=== PATIENT | female | born 1965 | race Caucasian/White ===

== ENCOUNTER 2017-07-16 19:13 | Emergency (ER) | payer BC ==
[2017-07-16] MEDS ORDERED: Sodium Chloride 0.9% 1000 ML 1,000 ML IV STA (19:43)
[2017-07-16] MEDS ORDERED: TORAdol 30 mg Injection IV ONE (19:43)
[2017-07-16] MEDS ORDERED: TORAdol 30 mg Injection ONE (19:48)
[2017-07-16] MEDS ORDERED: Sodium Chloride 0.9% 1000 ML 1,000 ML ONE (19:48)
--- NOTE | 2017-07-16 19:48 | ERPHSYRPT ---
- History of Present Illness Time Seen by Provider: 07/16/17 19:36 Source: patient Exam Limitations: no limitations Patient Subjective Stated Complaint: pt states she had lt flank pain for approx 2 weeks. radiates to lt groin. worse with movement or deep breath. Triage Nursing Assessment: pt alet and oriented, answers qeustions approp. respirations nonlabored with lungs cta. pt ambulatory with slightly limping gait noted. tenderness noted to lt lower back. Physician History: 52 y/o female comes to the ER with complaints of right flank pain for the past 2 weeks. Pt describes the pain as sharp, constant, 8/10, with radiation to right groin and not relieved by steroids. Pt denies any fever, chills, nausea, vomiting or urinary symptoms. No know injury. Timing/Duration: week(s) Activites at Onset: none Quality: sharpness Onset Location: right flank, groin Pain Radiation: groin Severity of Pain-Max: severe Severity of Pain-Current: severe Prior abdominal problems: none Modifying Factors: Improves With: nothing Allergies/Adverse Reactions: No Known Drug Allergies Allergy (Verified 07/16/17 19:32) Hx Tetanus, Diphtheria Vaccination/Date Given: Yes (up to date) Hx Influenza Vaccination/Date Given: No Hx Pneumococcal Vaccination/Date Given: No - Review of Systems Constitutional: No Fever, No Chills Eyes: No Symptoms Ears, Nose, & Throat: No Symptoms Respiratory: No Cough, No Dyspnea Cardiac: No Chest Pain, No Edema, No Syncope Abdominal/Gastrointestinal: Abdominal Pain, No Nausea, No Vomiting, No Diarrhea Genitourinary Symptoms: Flank Pain, No Dysuria Musculoskeletal: No Back Pain, No Neck Pain Skin: No Rash Neurological: No Dizziness, No Focal Weakness, No Sensory Changes Psychological: No Symptoms Endocrine: No Symptoms All Other Systems: Reviewed and Negative - Past Medical History Pertinent Past Medical History: No Neurological History: No Pertinent History ENT History: No Pertinent History Cardiac History: No Pertinent History Respiratory History: No Pertinent History Endocrine Medical History: No Pertinent History Musculoskeletal History: No Pertinent History GI Medical History: No Pertinent History History: No Pertinent History Psycho-Social History: No Pertinent History Female Reproductive Disorders: Other Other Medical History: tubal - Past Surgical History Past Surgical History: Yes Neuro Surgical History: No Pertinent History Cardiac: No Pertinent History Respiratory: No Pertinent History Gastrointestinal: No Pertinent History Genitourinary: No Pertinent History Musculoskeletal: Orthopedic Surgery Female Surgical History: Other Other Surgical History: removal of fallopian tube. left arm surgery (tendon repair) - Social History Smoking Status: Current every day smoker How long have you smoked: 35 Exposure to second hand smoke: Yes Drug Use: none Patient Lives Alone: No - Female History Hx Now: No (patient with 1 tube blocked and salpingectomy other side) - Nursing Vital Signs Nursing Vital Signs: Initial Vital Signs Temperature 97.6 F 07/16/17 19:19 Pulse Rate 103 H 07/16/17 19:19 Respiratory Rate 18 07/16/17 19:19 Blood Pressure 138/87 07/16/17 19:19 O2 Sat by Pulse Oximetry 95 07/16/17 19:19 Pain Scale Pain Intensity 3 - Physical Exam General Appearance: no apparent distress, alert Eye Exam: PERRL/EOMI, eyes nml inspection Ears, Nose, Throat Exam: normal ENT inspection, TMs normal, pharynx normal, moist mucous membranes Neck Exam: normal inspection, non-tender, supple, full range of motion Respiratory Exam: normal breath sounds, lungs clear, No respiratory distress Cardiovascular Exam: regular rate/rhythm, normal heart sounds, normal peripheral pulses Gastrointestinal/Abdomen Exam: soft, normal bowel sounds, tenderness, No mass Back Exam: normal inspection, normal range of motion, CVA tenderness, No vertebral tenderness Extremity Exam: normal inspection, normal range of motion, pelvis stable Neurologic Exam: alert, oriented x 3, cooperative, panel sewer II-XII nml as tested, normal mood/affect, sensation nml, No motor deficits Skin Exam: normal color, warm, dry Lymphatic Exam: No adenopathy SpO2: 95 Oxygen Delivery: Room Air - Course Nursing assessment & vital signs reviewed: Yes Ordered Tests: Active Orders 24 hr Category Date Time Status IV Insertion STAT Care 07/16/17 19:43 Active ABDOMEN AND PELVIS W/0 CONTRAS [CT] Stat Exams 07/16/17 19:43 Taken AMYLASE Stat Lab 07/16/17 19:46 Results CBC W DIFF Stat Lab 07/16/17 19:46 Completed CMP Stat Lab 07/16/17 19:46 Results LIPASE Stat Lab 07/16/17 19:46 Results Manual Differential NC Stat Lab 07/16/17 19:46 Completed UA W/ MICROSCOPIC Stat Lab 07/16/17 19:46 Completed Medication Summary Discontinued Medications Generic Name Dose Route Start Last Admin Trade Name Matthias PRN Reason Stop Dose Admin Sodium Chloride 1,000 mls @ 999 mls/hr 07/16/17 19:43 07/16/17 19:50 Sodium Chloride 0.9% 1000 Ml IV 07/16/17 20:43 999 mls/hr .Q1H1M STA Administration Sodium Chloride Confirm 07/16/17 19:48 Sodium Chloride 0.9% 1000 Ml Administered 07/16/17 19:49 Dose 1,000 mls @ ud .ROUTE .STK-MED ONE Ketorolac Tromethamine 30 mg 07/16/17 19:43 07/16/17 19:52 Toradol 30 Mg Injection IV 07/16/17 19:44 30 mg STAT ONE Administration Ketorolac Tromethamine Confirm 07/16/17 19:48 Toradol 30 Mg Injection Administered 07/16/17 19:49 Dose 30 mg .ROUTE .STK-MED ONE Lab/Rad Data: Laboratory Result Diagrams 07/16/17 19:46 07/16/17 19:46 Laboratory Results 07/16/17 07/16/17 07/16/17 Range/Units 19:46 19:46 19:46 WBC 11.7 H (4.0-10.5) K/mm3 RBC 4.12 (4.1-5.4) M/mm3 Hgb 12.8 (12.0-16.0) gm/dl Hct 37.6 (35-47) % MCV 91.3 (78-100) fl MCH 31.1 (26-32) pg MCHC 34.0 (32-36) g/dl RDW 12.6 (11.5-14.0) % Plt Count 287 (150-450) K/mm3 MPV 10.5 H (6-9.5) fl Segmented Neutrophils 35 L (36.0-66.0) % Lymphocytes (Manual) 53 H (24-44) % Monocytes (Manual) 6 (0.0-12.0) % Eosinophils (Manual) 4 H (0.00-3.0) % Basophils (Manual) 1 (0.0-1.0) % Differential Comment NORMAL Atypical Lymphocytes 1 % Platelet Estimate NORMAL (NORMAL) Sodium 136 (136-145) mEq/L Potassium 4.3 (3.5-5.1) mEq/L Chloride 98 (98-107) mEq/L Carbon Dioxide 26.9 (21-32) mEq/L Anion Gap 15.8 H (5-15) MEQ/L BUN 18 (9-20) mg/dL Creatinine 0.79 (0.55-1.30) mg/dl Estimated GFR > 60 ML/MIN Glucose 99 (70-110) MG/DL Calcium 8.6 (8.5-10.1) mg/dL Total Bilirubin 0.30 (0.2-1.0) mg/dL AST Pending ALT 22 (12-78) U/L Alkaline Phosphatase 68 (46-116) U/L Serum Total Protein 7.8 (6.4-8.2) gm/dL Albumin 4.4 (3.4-5.0) g/dL Amylase 43 (25-115) U/L Lipase 301 (73-393) U/L Ur Collection Type VOID Urine Color LT.YELLOW (YELLOW) Urine Appearance CLEAR (CLEAR) Urine pH 5.0 (5-6) Ur Specific [place] 1.005 (1.005-1.025) Urine Protein NEGATIVE (Negative) Urine Ketones NEGATIVE (NEGATIVE) Urine Blood NEGATIVE (0-5) Vince/ul Urine Nitrite NEGATIVE (NEGATIVE) Urine Bilirubin NEGATIVE (NEGATIVE) Urine Urobilinogen NORMAL (0-1) mg/dL Ur Leukocyte Esterase TRACE (NEGATIVE) Urine Microscopic RBC 0-2 (0-2) /HPF Urine Microscopic WBC 0-2 (0-5) /HPF Ur Epithelial Cells FEW (FEW) /HPF Urine Bacteria RARE (NEGATIVE) /HPF Urine Culture Reflexed NO (NO) Urine Glucose NEGATIVE (NEGATIVE) mg/dL Specimen Received 07/16/17 1950 - Progress Progress: improved Progress Note: 07/16/17 21:14 Pt feels better after receiving toradol and NS fluids. The CT scan abd/pelvis is within normal limits. The UA and the rest of the labs are unremarkable. Pt will be d/c home with a diagnosis of back strain and will be sent home with scripts of toradol and flexeril. - Departure Time of Disposition: 21:16 Departure Disposition: Home Clinical Impression: Muscle strain Condition: Stable Critical Care Time: No Referrals: BRITT CAPPS [Primary Care Provider] - Instructions: Muscle Strain Additional Instructions: Follow up with your primary care doctor if you should continue to have back pain. Prescriptions: Cyclobenzaprine HCl [Flexeril] 5 mg PO TID PRN #15 tablet PRN Reason: Muscle Spasms Ketorolac Tromethamine [Toradol] 10 mg PO QID PRN #20 tablet PRN Reason: Pain
[2017-07-16 19:50] LABS: Mean Cell Volume 91.3 fl (78-100); Mean Corpuscular Hemoglobin 31.1 pg (26-32); Mean Platelet Volume 10.5 fl (6-9.5); Platelet Count 287 K/mm3 (150-450); Red Blood Count 4.12 M/mm3 (4.1-5.4); Red Cell Distribution Width 12.6 % (11.5-14.0); White Blood Count 11.7 K/mm3 (4.0-10.5)
[2017-07-16 20:18] LABS: Bilirubin NEGATIVE (NEGATIVE); Blood NEGATIVE Ery/ul (0-5); COMPLETE URINE MICROSCOPIC? YES; Collection Type VOID; Glucose NEGATIVE (NEGATIVE); Leukocyte Esterase TRACE (NEGATIVE); WBC 0-2 /HPF (0-5)
[2017-07-16 20:19] LABS: ADD URINE CULTURE? NO (NO); Bacteria RARE /HPF (NEGATIVE); Epithelial Cells FEW /HPF (FEW)
[2017-07-16 20:22] LABS: ATYPICAL LYMPHS 1 %; Basophil 1 % (0.0-1.0); Eosinophil 4 % (0.00-3.0); Platelet Estimate NORMAL (NORMAL); Total Cells Counted 100
[2017-07-16 20:26] LABS: ALBUMIN 4.4 g/dL (3.4-5.0); ALKALINE PHOSPHATASE 68 U/L (46-116); ANION GAP 15.8 MEQ/L (5-15); BLOOD UREA NITROGEN 18 mg/dL (9-20); CHLORIDE 98 mEq/L (98-107); Carbon Dioxide 26.9 mEq/L (21-32); Glucose 99 MG/DL (70-110); LIPASE 301 U/L (73-393); Potassium 4.3 mEq/L (3.5-5.1); SGPT/ALT 22 U/L (12-78); SODIUM 136 mEq/L (136-145); Total Protein 7.8 gm/dL (6.4-8.2)
[2017-07-16 21:25] LABS: SGOT/AST 16 U/L (15-37)
[2017-07-16 21:33] VITALS: BP 116/60; PULSE 78; O2SAT 97
--- NOTE | 2017-07-17 08:37 | XRAY ---
Indication: Right flank pain. Multiple contiguous axial images obtained through the abdomen and pelvis without contrast using renal stone protocol. Comparison: None Lung bases demonstrates minimal bibasilar dependent atelectasis with right middle and left base fibrosis/scarring. Heart is not enlarged. No renal calculus or evidence for obstructive uropathy in either system. Stomach is distended with food/fluid. Noncontrasted stomach and bowel loops appear nonobstructed. Mild diffuse scattered colonic fecal debris. Appendix not seen. No free fluid/air. Gallbladder contracted without gallstones. Remaining liver, pancreas, spleen, adrenal glands, kidneys, ureters, bladder, and uterus appear unremarkable for noncontrast exam. Mild aortoiliac without AAA. Osseous structures intact. Impression: 1. Negative renal calculus or evidence for obstructive uropathy. 2. Mild fecal stasis without obstruction. 3. No acute intra-abdominal/pelvic abnormalities on this noncontrast exam. Comment: Preliminary interpretation was made by [facility]. No discrepancy. CT DI 12.93
== END 2017-07-16 21:32 | disposition home or self-care (01) ==
LOC: ED 19:13
DX: S39.011A Strain of muscle, fascia and tendon of abdomen, initial encounter (principal); R10.9 Unspecified abdominal pain
CPT/HCPCS: 36000; 36415; 74176; 80053; 81000; 82150; 83690; 85025; 96360; 96374; 99284; J1885

== ENCOUNTER 2019-03-29 17:33 | Observation (INO) | payer BC, SELFPAY ==
[2019-03-29] MEDS ORDERED: Sodium Chloride 0.9% 1000 ML 1,000 ML ONE ×2 (18:08→19:23)
[2019-03-29] MEDS ORDERED: Levofloxacin 500MG/100ML D5W 500 MG/100 ML BAG IV STA (18:22)
[2019-03-29] MEDS ORDERED: TYLENOL 325 MG ONE (18:22)
[2019-03-29] MEDS ORDERED: TYLENOL 325 MG PO STA (18:22)
--- NOTE | 2019-03-29 18:22 | ERPHSYRPT ---
- History of Present Illness Time Seen by Provider: 03/29/19 18:15 Historian: patient Exam Limitations: clinical condition Patient Subjective Stated Complaint: abdominal pain Triage Nursing Assessment: Patient ambulated into ED and transferred self to bed. Patient A+ O X3. Patient's skin flushed, hot and dry. Patient complains of fever since yesterday with getting as high as 103.4 and lowest 99.5. Patient also complains of intermittent abdominal pain 2/10. Patient complains of diarrhea and nausea. Physician History: PATIENT COMPLAINS OF ACUTE ONSET OF LOWER ABDOMINAL PAINS WATERY DIARRHEA AND ELEVATED FEVER SINCE YESTERDAY. HAS HAD 3 EPISODES OF WATERY DIARRHEA, NAUSEA. DENIES BRIGHT RED BLOOD PER RECTUM, EMESIS, URINARY SYMPTOMS, COUGH OR DYSPNEA Timing/Duration: yesterday Activities at Onset: none Quality: cramping Abdominal Pain Onset Location: LUQ Severity of Pain-Max: mild Severity of Pain-Current: mild Modifying Factors: Improves With: defecating Associated Symptoms: diarrhea, nausea Previous symptoms: no prior history Allergies/Adverse Reactions: No Known Drug Allergies Allergy (Verified 03/29/19 17:58) Hx Tetanus, Diphtheria Vaccination/Date Given: Yes (up to date) Hx Influenza Vaccination/Date Given: No Hx Pneumococcal Vaccination/Date Given: No Immunizations Up to Date: Yes - Review of Systems Constitutional: Fever, No Chills Eyes: No Symptoms Ears, Nose, & Throat: No Symptoms Respiratory: No Symptoms, No Cough, No Dyspnea Cardiac: No Symptoms, No Chest Pain, No Edema, No Syncope Abdominal/Gastrointestinal: Abdominal Pain, Nausea, Diarrhea, No Vomiting Genitourinary Symptoms: No Symptoms, No Dysuria Musculoskeletal: No Symptoms, No Back Pain, No Neck Pain Skin: No Rash Neurological: No Dizziness, No Focal Weakness, No Sensory Changes Psychological: No Symptoms Endocrine: No Symptoms All Other Systems: Reviewed and Negative - Past Medical History Pertinent Past Medical History: No Neurological History: No Pertinent History ENT History: No Pertinent History Cardiac History: No Pertinent History Respiratory History: No Pertinent History Endocrine Medical History: No Pertinent History Musculoskeletal History: No Pertinent History GI Medical History: No Pertinent History History: No Pertinent History Psycho-Social History: No Pertinent History Female Reproductive Disorders: Other Other Medical History: tubal - Past Surgical History Past Surgical History: Yes Neuro Surgical History: No Pertinent History Cardiac: No Pertinent History Respiratory: No Pertinent History Gastrointestinal: No Pertinent History Genitourinary: No Pertinent History Musculoskeletal: Orthopedic Surgery Female Surgical History: Other Other Surgical History: removal of fallopian tube. left arm surgery (tendon repair) - Social History Smoking Status: Current every day smoker How long have you smoked: years Exposure to second hand smoke: No Drug Use: none Patient Lives Alone: No - Female History Hx Last Menstrual Period: menopausal Hx Now: No - Nursing Vital Signs Nursing Vital Signs: Initial Vital Signs Temperature 103.0 F 03/29/19 17:59 Pulse Rate 100 H 03/29/19 17:59 Respiratory Rate 20 03/29/19 17:59 Blood Pressure 115/68 03/29/19 17:59 O2 Sat by Pulse Oximetry 99 03/29/19 17:59 Pain Scale Pain Intensity 2 - Physical Exam General Appearance: no apparent distress, alert Eye Exam: PERRL/EOMI, eyes nml inspection Ears, Nose, Throat Exam: normal ENT inspection, pharynx normal, moist mucous membranes Neck Exam: normal inspection, non-tender, supple, full range of motion Respiratory Exam: normal breath sounds, lungs clear, No respiratory distress Cardiovascular Exam: regular rate/rhythm, normal heart sounds Gastrointestinal/Abdomen Exam: soft, normal bowel sounds, tenderness (LEFT LOWER QUAD TENDERNESS), No mass Back Exam: normal inspection, normal range of motion, No CVA tenderness, No vertebral tenderness Extremity Exam: normal inspection, normal range of motion, pelvis stable Neurologic Exam: alert, oriented x 3, cooperative, normal mood/affect, nml cerebellar function, sensation nml, No motor deficits Skin Exam: normal color, warm, dry SpO2 Interpretation: normal SpO2: 99 - CT Exams Abdomen/Pelvis CT Interpretation: Tele-radiologist Report (NORMAL APPENDIX, THERE IS ABNORMAL WALL TIHICKENING INVOLVING MOSST OF THE COLON BUT PARTICULARY IN THE PROXIMAL COLON SUSPICIOUS FOR INFECTIOUS OR INFLAMMATORY PANCOLITIS) Ordered Tests: Active Orders 24 hr Category Date Time Status IV Insertion STAT Care 03/29/19 18:22 Active ABDOMEN AND PELVIS W CONTRAST [CT] Stat Exams 03/29/19 19:03 Taken CHEST 1 VIEW (PORTABLE) Stat Exams 03/29/19 18:23 Taken BLOOD CULTURE Stat Lab 03/29/19 20:24 Received CBC W DIFF Stat Lab 03/29/19 18:30 Completed CMP Stat Lab 03/29/19 18:30 Completed HCG,QUALITATIVE URINE Stat Lab 03/29/19 18:53 Completed Lactic Acid Stat Lab 03/29/19 18:40 Completed PROTIME WITH INR Stat Lab 03/29/19 18:30 Completed TROPONIN Q3H Lab 03/29/19 18:30 Completed TROPONIN Q3H Lab 03/29/19 21:17 Received TROPONIN Q3H Lab 03/30/19 00:30 Ordered TROPONIN Q3H Lab 03/30/19 03:30 Ordered TROPONIN Q3H Lab 03/30/19 06:30 Ordered Urinalysis with Microscopy Stat Lab 03/29/19 18:53 Completed Medication Summary Generic Name Dose Route Start Last Admin Trade Name Freq PRN Reason Stop Dose Admin Sodium Chloride 1,000 mls @ 999 mls/hr 03/29/19 18:30 03/29/19 19:30 Sodium Chloride 0.9% 1000 Ml IV 03/29/19 20:30 999 mls/hr .Q1H1M NAIN Administration Metronidazole 500 mg in 100 mls @ 200 mls/hr 03/29/19 21:34 Flagyl 500 Mg Ivpb IV 03/29/19 22:03 STAT STA Discontinued Medications Generic Name Dose Route Start Last Admin Trade Name Freq PRN Reason Stop Dose Admin Acetaminophen Confirm 03/29/19 18:22 Tylenol 325 Mg Administered 03/29/19 18:23 Dose 650 mg .ROUTE .STK-MED ONE Acetaminophen 650 mg 03/29/19 18:22 03/29/19 18:30 Tylenol 325 Mg PO 03/29/19 18:23 650 mg STAT STA Administration Sodium Chloride Confirm 03/29/19 18:08 Sodium Chloride 0.9% 1000 Ml Administered 03/29/19 18:09 Dose 1,000 mls @ ud .ROUTE .STK-MED ONE Levofloxacin/Dextrose 500 mg in 100 mls @ 100 mls/hr 03/29/19 18:22 03/29/19 19:28 Levofloxacin 500mg/100ml D5w IV 03/29/19 19:21 100 mls/hr STAT STA 100 mls/hr Administration Sodium Chloride 1,000 mls @ 999 mls/hr 03/29/19 18:22 03/29/19 19:29 Sodium Chloride 0.9% 1000 Ml IV 03/29/19 19:22 999 mls/hr .Q1H1M STA Administration Levofloxacin/Dextrose Confirm 03/29/19 19:24 Levofloxacin 500mg/100ml D5w Administered 03/29/19 19:25 Dose 500 mg in 100 mls @ ud IV .STK-MED ONE Lab/Rad Data: Laboratory Result Diagrams 03/29/19 18:30 03/29/19 18:30 Laboratory Results 03/29/19 03/29/19 03/29/19 Range/Units 18:53 18:53 18:40 WBC (4.0-10.5) K/mm3 RBC (4.1-5.4) M/mm3 Hgb (12.0-16.0) gm/dl Hct (35-47) % MCV (78-100) fl MCH (26-32) pg MCHC (32-36) g/dl RDW (11.5-14.0) % Plt Count (150-450) K/mm3 MPV (6-9.5) fl Gran % (36.0-66.0) % Eos # (Auto) (0-0.5) Absolute Lymphs (auto) (1.0-4.6) Absolute Monos (auto) (0.0-1.3) Lymphocytes % (24.0-44.0) % Monocytes % (0.0-12.0) % Eosinophils % (0.00-5.0) % Basophils % (0.0-0.4) % Absolute Granulocytes (1.4-6.9) Basophils # (0-0.4) PT (9.95-12.35) SECONDS INR (0.8-3.0) Sodium (137-145) mmol/L Potassium (3.5-5.1) mmol/L Chloride (98-107) mmol/L Carbon Dioxide (22-30) mmol/L Anion Gap (5-15) MEQ/L BUN (7-17) mg/dL Creatinine (0.52-1.04) mg/dL Estimated GFR ML/MIN Glucose (74-106) mg/dL Lactic Acid 1.0 (0.4-2.0) Calcium (8.4-10.2) mg/dL Total Bilirubin (0.2-1.3) mg/dL AST (14-36) U/L ALT (0-35) U/L Alkaline Phosphatase (38-126) U/L Troponin I (0.000-0.034) ng/mL Serum Total Protein (6.3-8.2) g/dL Albumin (3.5-5.0) g/dL Urine Color YELLOW (YELLOW) Urine Appearance CLEAR (CLEAR) Urine pH 6.0 (5-6) Ur Specific [place] 1.015 (1.005-1.025) Urine Protein 30 (Negative) Urine Ketones NEGATIVE (NEGATIVE) Urine Blood SMALL (0-5) Vince/ul Urine Nitrite NEGATIVE (NEGATIVE) Urine Bilirubin NEGATIVE (NEGATIVE) Urine Urobilinogen NEGATIVE (0-1) mg/dL Ur Leukocyte Esterase TRACE (NEGATIVE) Urine WBC (Auto) 3-5 (0-5) /HPF Urine RBC (Auto) 0-2 (0-2) /HPF U Epithel Cells (Auto) RARE (FEW) /HPF Urine Bacteria (Auto) NONE (NEGATIVE) /HPF Urine Mucus (Auto) SLIGHT (NEGATIVE) /HPF Urine Glucose NEGATIVE (NEGATIVE) mg/dL Urine HCG, Qual NEGATIVE (Negative) Slides for Path Review 03/29/19 03/29/19 03/29/19 Range/Units 18:30 18:30 18:30 WBC (4.0-10.5) K/mm3 RBC (4.1-5.4) M/mm3 Hgb (12.0-16.0) gm/dl Hct (35-47) % MCV (78-100) fl MCH (26-32) pg MCHC (32-36) g/dl RDW (11.5-14.0) % Plt Count (150-450) K/mm3 MPV (6-9.5) fl Gran % (36.0-66.0) % Eos # (Auto) (0-0.5) Absolute Lymphs (auto) (1.0-4.6) Absolute Monos (auto) (0.0-1.3) Lymphocytes % (24.0-44.0) % Monocytes % (0.0-12.0) % Eosinophils % (0.00-5.0) % Basophils % (0.0-0.4) % Absolute Granulocytes (1.4-6.9) Basophils # (0-0.4) PT 12.0 (9.95-12.35) SECONDS INR 1.06 (0.8-3.0) Sodium 134 L (137-145) mmol/L Potassium 3.8 (3.5-5.1) mmol/L Chloride 102 (98-107) mmol/L Carbon Dioxide 22 (22-30) mmol/L Anion Gap 14.1 (5-15) MEQ/L BUN 10 (7-17) mg/dL Creatinine 0.68 (0.52-1.04) mg/dL Estimated GFR > 60.0 ML/MIN Glucose 107 H (74-106) mg/dL Lactic Acid (0.4-2.0) Calcium 9.1 (8.4-10.2) mg/dL Total Bilirubin 0.50 (0.2-1.3) mg/dL AST 22 (14-36) U/L ALT 17 (0-35) U/L Alkaline Phosphatase 63 (38-126) U/L Troponin I < 0.012 (0.000-0.034) ng/mL Serum Total Protein 7.5 (6.3-8.2) g/dL Albumin 4.1 (3.5-5.0) g/dL Urine Color (YELLOW) Urine Appearance (CLEAR) Urine pH (5-6) Ur Specific [place] (1.005-1.025) Urine Protein (Negative) Urine Ketones (NEGATIVE) Urine Blood (0-5) Vince/ul Urine Nitrite (NEGATIVE) Urine Bilirubin (NEGATIVE) Urine Urobilinogen (0-1) mg/dL Ur Leukocyte Esterase (NEGATIVE) Urine WBC (Auto) (0-5) /HPF Urine RBC (Auto) (0-2) /HPF U Epithel Cells (Auto) (FEW) /HPF Urine Bacteria (Auto) (NEGATIVE) /HPF Urine Mucus (Auto) (NEGATIVE) /HPF Urine Glucose (NEGATIVE) mg/dL Urine HCG, Qual (Negative) Slides for Path Review 03/29/19 Range/Units 18:30 WBC 11.1 H (4.0-10.5) K/mm3 RBC 4.03 L (4.1-5.4) M/mm3 Hgb 12.9 (12.0-16.0) gm/dl Hct 38.1 (35-47) % MCV 94.5 (78-100) fl MCH 32.0 (26-32) pg MCHC 33.9 (32-36) g/dl RDW 12.6 (11.5-14.0) % Plt Count 161 (150-450) K/mm3 MPV 11.2 H (6-9.5) fl Gran % 91.0 H (36.0-66.0) % Eos # (Auto) 0.01 (0-0.5) Absolute Lymphs (auto) 0.53 L (1.0-4.6) Absolute Monos (auto) 0.45 (0.0-1.3) Lymphocytes % 4.8 L (24.0-44.0) % Monocytes % 4.1 (0.0-12.0) % Eosinophils % 0.1 (0.00-5.0) % Basophils % 0.0 (0.0-0.4) % Absolute Granulocytes 10.07 H (1.4-6.9) Basophils # 0 (0-0.4) PT (9.95-12.35) SECONDS INR (0.8-3.0) Sodium (137-145) mmol/L Potassium (3.5-5.1) mmol/L Chloride (98-107) mmol/L Carbon Dioxide (22-30) mmol/L Anion Gap (5-15) MEQ/L BUN (7-17) mg/dL Creatinine (0.52-1.04) mg/dL Estimated GFR ML/MIN Glucose (74-106) mg/dL Lactic Acid (0.4-2.0) Calcium (8.4-10.2) mg/dL Total Bilirubin (0.2-1.3) mg/dL AST (14-36) U/L ALT (0-35) U/L Alkaline Phosphatase (38-126) U/L Troponin I (0.000-0.034) ng/mL Serum Total Protein (6.3-8.2) g/dL Albumin (3.5-5.0) g/dL Urine Color (YELLOW) Urine Appearance (CLEAR) Urine pH (5-6) Ur Specific [place] (1.005-1.025) Urine Protein (Negative) Urine Ketones (NEGATIVE) Urine Blood (0-5) Vince/ul Urine Nitrite (NEGATIVE) Urine Bilirubin (NEGATIVE) Urine Urobilinogen (0-1) mg/dL Ur Leukocyte Esterase (NEGATIVE) Urine WBC (Auto) (0-5) /HPF Urine RBC (Auto) (0-2) /HPF U Epithel Cells (Auto) (FEW) /HPF Urine Bacteria (Auto) (NEGATIVE) /HPF Urine Mucus (Auto) (NEGATIVE) /HPF Urine Glucose (NEGATIVE) mg/dL Urine HCG, Qual (Negative) Slides for Path Review YES - Progress Progress Note: 03/29/19 18:31 LACTIC ACID 1.0 PLACED ON SEPSIS PROTOCOL AT 1820 DUE TO FEVER AND TACHYCARDIA, IV NORMAL SALINE 50MG/30ML BOLUS OVER 2 HOURS, AFTER 2 SETS OF BLOOD CULTURES LEVAQUIN 500MG IVPB AND FLAGYL 500MG IVPB 03/29/19 21:[address] Ovalle (DISCUSSED WITH DR OVALLE AT 2130 FOR OBSERVATION) - Departure Departure Disposition: Observation Clinical Impression: ACUTE COLITIS Condition: Stable Critical Care Time: No Referrals: BRITT OVALLE [Primary Care Provider] -
[2019-03-29] MEDS: Sodium Chloride 0.9% 1000 ML 1,000 ML IV SCH ×2 (18:30→19:30)
[2019-03-29 18:33] LABS: Basophil (Absolute #) 0 (0-0.4); Eosinophil % 0.1 % (0.00-5.0); Eosinophil (Absolute #) 0.01 (0-0.5); Granulocyte Absolute (ANC) 10.07 (1.4-6.9); Hematocrit 38.1 % (35-47); Hemoglobin 12.9 gm/dl (12.0-16.0); Lymphocyte (Absolute #) 0.53 (1.0-4.6); Lymphocytes % 4.8 % (24.0-44.0); Mean Cell Volume 94.5 fl (78-100); Mean Corpuscular Hgb Concent. 33.9 g/dl (32-36); Mean Platelet Volume 11.2 fl (6-9.5); Monocyte (Absolute #) 0.45 (0.0-1.3); Monocytes % 4.1 % (0.0-12.0); Platelet Count 161 K/mm3 (150-450); Red Blood Count 4.03 M/mm3 (4.1-5.4); Red Cell Distribution Width 12.6 % (11.5-14.0); White Blood Count 11.1 K/mm3 (4.0-10.5)
[2019-03-29 18:40] LABS: ALBUMIN 4.1 g/dL (3.5-5.0); ALKALINE PHOSPHATASE 63 U/L (38-126); ANION GAP 14.1 MEQ/L (5-15); BLOOD UREA NITROGEN 10 mg/dL (7-17); CHLORIDE 102 mmol/L (98-107); Calcium 9.1 mg/dL (8.4-10.2); Carbon Dioxide 22 mmol/L (22-30); Creatinine 1 0.68 mg/dL (0.52-1.04); Glucose 107 mg/dL (74-106); Potassium 3.8 mmol/L (3.5-5.1); SGOT/AST 22 U/L (14-36); SGPT/ALT 17 U/L (0-35); SODIUM 134 mmol/L (137-145); Total Protein 7.5 g/dL (6.3-8.2)
[2019-03-29 18:42] LABS: INR 1.06 (0.8-3.0)
[2019-03-29 19:07] LABS: Appearance CLEAR (CLEAR); Bilirubin NEGATIVE (NEGATIVE); Blood SMALL Ery/ul (0-5); Epithelial Cells RARE /HPF (FEW); Glucose NEGATIVE (NEGATIVE); Ketones NEGATIVE (NEGATIVE); Leukocyte Esterase TRACE (NEGATIVE); Mucus SLIGHT /HPF (NEGATIVE); Nitrite NEGATIVE (NEGATIVE); Protein,Urine Dip 30 (Negative); RBC 0-2 /HPF (0-2); Specific Gravity 1.015 (1.005-1.025); Urobilinogen NEGATIVE mg/dL (0-1)
[2019-03-29] MEDS ORDERED: Levofloxacin 500MG/100ML D5W 500 MG/100 ML BAG IV ONE (19:24)
[2019-03-29] MEDS: Sodium Chloride 0.9% 1000 ML 1,000 ML IV STA ×2 (19:29→21:43)
[2019-03-29] MEDS ORDERED: FLAGYL 500 MG IVPB 500 MG/100 ML BAG IV STA (21:34)
[2019-03-29] MEDS ORDERED: FLAGYL 500 MG IVPB 500 MG/100 ML BAG IV ONE (21:45)
[2019-03-29] MEDS ORDERED: TYLENOL 325 MG PO PRN (21:46)
[2019-03-29] MEDS ORDERED: MORPHINE SULFATE 4 MG INJ IV PRN (21:46)
[2019-03-29] MEDS ORDERED: Zofran 4 MG/2 ML VIAL IV PRN (21:46)
[2019-03-29] MEDS ORDERED: Sodium Chloride 0.9% 1000 ML 1,000 ML IV SCH (22:00)
--- NOTE | 2019-03-29 22:39 | XRAY ---
Indication: Lower abdominal pain, diarrhea, fever, nausea, and elevated WBC. Multiple contiguous axial images obtained through the abdomen and pelvis using 80 cc Isovue 370 contrast only. Comparison: CT renal stone study July 16, 2017. Lung bases demonstrates minimal bilateral atelectasis/scarring. No infiltrate or effusion. Heart is not enlarged. Noncontrasted stomach and bowel loops appear nonobstructed. Normal appendix. There is mild fluid throughout the colon and rectum favoring diarrhea. Colon also demonstrates new diffuse bowel wall thickening with stranding favoring colitis. No free fluid/air. Gallbladder partially contracted without gallstones. Remaining liver, pancreas, spleen, adrenal glands, kidneys, ureters, bladder, and uterus appear unremarkable. Stable mild aortoiliac calcifications. No AAA or pathologic retroperitoneal lymphadenopathy. Osseous structures intact. Impression: New CT findings as detailed favoring diffuse colitis. No complications. Comment: Preliminary interpretation was made by [facility]. No discrepancy. CTDI 8.12
--- NOTE | 2019-03-29 22:41 | XRAY ---
Indication: Possible sepsis. Abdominal pain, diarrhea, fever, and nausea. Comparison: December 15, 2009. Portable chest again demonstrates normal heart, lungs, and bony thorax with incidental right midlung calcified granuloma.
[2019-03-29] MEDS: Pepcid 20 MG VIAL IV SCH (23:20)
[2019-03-30 02:52] LABS: 027 TOX PROD PRESUMPTIVE NEGATIVE (NEGATIVE); TOXIGENIC C. DIFF ORG NEGATIVE (NEGATIVE)
[2019-03-30] MEDS ORDERED: FLAGYL 500 MG IVPB 500 MG/100 ML BAG IV SCH ×3 (04:00→12:00)
[2019-03-30 07:20] VITALS: BP 120/62; PULSE 76; O2SAT 98
[2019-03-30] MEDS: Pepcid 20 MG VIAL IV SCH (09:59)
[2019-03-30] MEDS ORDERED: Levofloxacin 500MG/100ML D5W 500 MG/100 ML BAG IV SCH (22:00)
--- NOTE | 2019-04-01 13:43 | SSS ---
DISCHARGE DIAGNOSES: 1) ABDOMINAL PAIN. 2) DIARRHEA. 3) FEVER. HISTORY: This is a 53 year-old white female who developed 103.4F fever at home and began having watery diarrhea. She reports she had been well up until two days ago when she started having some abdominal discomfort. The patient reports the diarrhea is watery and green. There has been no blood in it. It does not appear mucosae. PAST MEDICAL HISTORY: The patient is ordinarily healthy and has no medical problems. PAST SURGICAL HISTORY: Removal of fallopian tube from ectopic . Left arm tendon repair. HOME MEDICATIONS: She is on no medications. ALLERGIES: NKDA. PHYSICAL EXAMINATION: Revealed a thin, white female in no distress whatsoever at this time, ambulating to the bathroom without difficulty. Her initial temperature in the emergency room was 103F, pulse 100, respiratory rate 20 and blood pressure 115/68. O2 saturation 99%. HEENT: Normocephalic, atraumatic. Pupils equal round reactive to light. Extraocular movements intact. Oropharynx is somewhat dry at this time. NECK: Supple without lymphadenopathy, thyromegaly or JVD. CHEST: Clear to auscultation. HEART: Regular rate and rhythm. ABDOMEN: Soft and minimally tender. Normoactive bowel sounds. EXTREMITIES: Without cyanosis, clubbing or edema. NEUROLOGIC: The patient is alert and oriented x3. No focal deficits noted. LAB DATA AND TESTS: Thus far revealed several troponins all 0.012. She had Clostridium difficile test which was negative. She had a white blood cell count 11,100, hemoglobin 12.9, PLT count was noted to be 161,000. There appeared to be a left shift with 91% granulocytes. She had a lactic acid of 1.0. Her HCG was negative. UA with specific gravity 1.015 and otherwise essentially normal. Metabolic panel showed a glucose of 107, BUN 10, creatinine .068. Electrolytes were normal. Liver enzymes were normal. She had CT scan which showed what appeared to be colitis with thickened bowel wall particularly in the right side. HOSPITAL COURSE: The patient was admitted to the [facility] on Levaquin and Flagyl. By the next morning the patient was feeling much better. She was now afebrile and was very hungry. She was allowed to take fluids and then eggs after which the patient was able to be discharged home. She was discharged on Levaquin at 500 mg for seven days and Flagyl 250 mg t.i.d. for 7 days and warned about alcohol intake. The patient will be seen in the office in follow up in one week at which time we will consider endoscopic evaluation.
[2019-04-01 15:24] LABS: Source: Feces
[2019-04-01 15:59] LABS: Giardia Antigen EIA Negative (Negative)
== END 2019-03-30 10:30 | disposition home or self-care (01) ==
LOC: ED 17:33 → MED SURG 22:45
PROVIDERS: ADMIT Family Medicine; ATTEND Family Medicine
DX: R10.9 Unspecified abdominal pain (principal); R19.7 Diarrhea, unspecified; R50.9 Fever, unspecified
CPT/HCPCS: 36000; 36415; 71045; 74177; 80053; 81001; 83605; 84484; 84703; 85025; 85610; 87040; 87177; 87209; 87493; 96360; 96361; 96365; 96367; 99285; G0378; J1956; A9270-GY